=== PATIENT | female | born 1990 ===

== ENCOUNTER 2017-12-28 09:06 | Day surgery (SDC) | payer BC ==
--- NOTE | 2017-12-28 09:46 | C.PDOC ---
History Of Present Illness REFERRED FROM OBGYN FOR INCOMPLETE MISCARRIAGE. PS PERSIST VAG BLEED. NO OTHER ASSOC SX. 5 W5D [id number] EXAM APPEARS COMFORTABLE NAD MARY GUZMÁN JESSAM RNEG Time Seen by Provider: 12/28/17 09:41 Chief Complaint (Nursing): Female Genitourinary History Per: Patient History/Exam Limitations: no limitations Onset/Duration Of Symptoms: Days Current Symptoms Are (Timing): Still Present Severity: Moderate Past Medical History Reviewed: Historical Data, Nursing Documentation, Vital Signs Vital Signs: Last Vital Signs Temp 98.7 F 12/28/17 09:30 Pulse 112 H 12/28/17 09:30 Resp 20 12/28/17 09:30 BP 115/79 12/28/17 09:30 Pulse Ox 100 12/28/17 10:46 - Medical History PMH: No Chronic Diseases Other Surgeries: Hx of surgeries Family History: States: No Known Family Hx - Social History Hx Alcohol Use: No Hx Substance Use: No - Immunization History Hx Tetanus Toxoid Vaccination: No Hx Influenza Vaccination: No Hx Pneumococcal Vaccination: No Review Of Systems Except As Marked, All Systems Reviewed And Found Negative. Genitourinary: Positive for: Vaginal Bleeding Physical Exam - Physical Exam Appears: Non-toxic, No Acute Distress, Other (comfortable) Skin: Normal Color, Warm Head: Atraumatic, Normacephalic Eye(s): bilateral: Normal Inspection Gastrointestinal/Abdominal: Normal Exam, Soft, No Tenderness, No Distention, No Guarding, No Rebound Neurological/Psych: Oriented x3, Normal Speech, Normal Motor, Normal Sensation ED Course And Treatment - Laboratory Results Result Diagrams: 12/28/17 10:30 ECG: Interpreted By Me, Viewed By Me ECG Rhythm: Sinus Rhythm Rate From EC O2 Sat by Pulse Oximetry: 100 (RA) Pulse Ox Interpretation: Normal Progress - Re-Evaluation Re-evaluation Note: 12/28/17 09:48 D/W DR ERICH THURSTON IN ER, POSSIBLE O.R. FOR D&C - Data Reviewed Data Reviewed: Lab Medical Decision Making Medical Decision Making: Plan: --Labs --UA --IV Fluids Disposition Counseled Patient/Family Regarding: Studies Performed, Diagnosis - Disposition Disposition: HOSPITALIZED Disposition Time: 09:46 Condition: STABLE - POA Present On Arrival: None - Clinical Impression Clinical Impression: Incomplete miscarriage - Scribe Statement The provider has reviewed the documentation as recorded by the Brandonibe Madi Evans Provider Attestation: All medical record entries made by the Brandonibe were at my direction and personally dictated by me. I have reviewed the chart and agree that the record accurately reflects my personal performance of the history, physical exam, medical decision making, and the department course for this patient. I have also personally directed, reviewed, and agree with the discharge instructions and disposition. Decision To Admit - Pt Status Changed To: Hospital Disposition Of: SDS- Endo,OR,Cath,IR - . Bed Request Type: BRASS CLEANER Admitting Physician: Osmin Tang Patient Diagnosis: Incomplete miscarriage
[2017-12-28] MEDS ORDERED: Sodium Chloride 0.9% 1,000 ML IV ONE (09:50)
[2017-12-28 10:38] LABS: BASO # 0.1 K/uL (0.0-0.2); BASO % 0.7 % (0.0-2.0); EOS # 0.1 K/uL (0.0-0.7); EOS % 0.7 % (0.0-4.0); HEMOGLOBIN 12.4 g/dL (11.0-16.0); LYMPH # 1.1 K/uL (1.0-4.3); LYMPH % 14.4 % (20.0-40.0); MEAN CELL VOLUME 87.5 fL (81.0-99.0); MEAN CORPUSCULAR HEMOGLOBIN 29.7 pg (27.0-31.0); MEAN PLATELET VOLUME 9.3 fL (7.2-11.7); MONO # 0.6 K/uL (0.0-0.8); MONO % 7.2 % (0.0-10.0); NEUT # 5.9 K/uL (1.8-7.0); RBC 4.16 Mil/uL (3.80-5.20); RED CELL DISTRIBUTION WIDTH 13.6 % (11.5-14.5); WHITE BLOOD COUNT 7.7 K/uL (4.8-10.8)
[2017-12-28 11:00] LABS: ALB/GLOB RATIO 1.2 (1.0-2.1); ALBUMIN 4.8 g/dL (3.5-5.0); CALCIUM 9.6 mg/dl (8.6-10.4); GFR AFRICAN-AMERICAN > 60; GFR NON-AFRICAN AMERICAN > 60
[2017-12-28 11:04] LABS: ALT/SGPT 35 U/L (9-52); AST/SGOT 28 U/L (14-36); BLOOD UREA NITROGEN 11 mg/dL (7-17)
[2017-12-28] MEDS ORDERED: HYDROmorphone 0.5 mg/0.5 ml ISec IVP PRN ×2 (11:54→19:10)
[2017-12-28] MEDS ORDERED: cefOXitin 2 GM in Sodium Chloride 0.9% 100 ML IVPB ONE (11:54)
--- NOTE | 2017-12-28 12:15 | CP.PCM.HP ---
History of Present Illness - History of Present Illness History of Present Illness: OBGYN H&P for Dr. Tang CC: Abdominal pain and vaginal bleeding HPI: 27 yo F currently 5w5d , LMP 11/02/2017 presents complaining of abdominal pain and persistent heavy vaginal bleeding for the past three days. Patient went to the ER at [facility] [place] on Thursday, when the vaginal bleeding started, then again on Thursday with persistent bleeding and worsening pain. At both visits, she had transvaginal ultrasounds which showed early IUP, and labs which showed declining bHCG. Patient continued to bleed heavily, soaking through two pads every hour, with 8/10 crampy lower abdominal pain. She also admits to nausea and one episode of nonbloody, nonbilious vomiting yesterday. She denies chest pain, palpitations, shortness of breath, headache, dizziness, fever, chills, diarrhea, constipation. Remainder of 12 point ROS was obtained and negative except as above. PMH: Patent ductus arteriousus s/p embolization coil placement, anticardiolipid antibody, Sjogrens type A, T1-T8 spinal syringomyelia PSH: PDA embolization coil, section x2, hysteroscopy and myomectomy ( 2017), 4 left eye surgeries FHx: Father (56) with CKD, DM, HTN, CVA; Mother (49) with HLD, cervical CA Soc: Denies tobacco, alcohol, or illicits; lives with boyfriend and two daughters All: [employer] Hx Triad - 11, irregular, 8 Denies history of STIs. Admits to history of cysts and fibroid Mother with history of cervical CA OB Hx - 1. 2009, Spontaneous at 8 weeks 2. 2010, female, primary for history of PDA, at 39 weeks, uncomplicated 3. 2013, female, primary for history of PDA at early labor, at 37 weeks , uncomplicated 4. Current Present on Admission - Present on Admission Any Indicators Present on Admission: No Past Patient History - Past Social History Smoking Status: Never Smoked - CARDIAC Hx Cardiac Disorders: Yes Other/Comment: PDA. Anticardiolip syndrome. Cardiac coil - PSYCHIATRIC Hx Substance Use: No - SURGICAL HISTORY Hx Surgeries: Yes Hx Eye Surgery: Yes Other/Comment: Fibroid removal. Cardiac surgery Meds Allergies/Adverse Reactions: Allergies Allergy/AdvReac Type Severity Reaction Status Date / Time No Known Allergies Allergy Verified 12/28/17 09:36 Physical Exam - Constitutional Appears: Non-toxic, No Acute Distress - Head Exam Head Exam: ATRAUMATIC, NORMOCEPHALIC - Eye Exam Eye Exam: EOMI, Normal appearance, PERRL. absent: Scleral icterus - ENT Exam ENT Exam: Mucous Membranes Moist - Neck Exam Neck exam: Positive for: Normal Inspection - Respiratory Exam Respiratory Exam: Clear to Auscultation Bilateral, NORMAL BREATHING PATTERN - Cardiovascular Exam Cardiovascular Exam: RRR, +S1, +S2. absent: Tachycardia - GI/Abdominal Exam GI & Abdominal Exam: Normal Bowel Sounds, Soft, Tenderness (suprapubic). absent : Distended, Firm, Guarding, Rigid - Exam Additional comments: Vaginal bleeding noted. Cervix dilated with passage of clots. Uterus 4 weeks size. - Extremities Exam Extremities exam: Positive for: normal inspection. Negative for: calf tenderness, pedal edema - Neurological Exam Neurological exam: Alert, Oriented x3 - Psychiatric Exam Psychiatric exam: Normal Affect, Normal Mood - Skin Skin Exam: Dry, Intact, Normal Color Results - Vital Signs Recent Vital Signs: Last Vital Signs Temp 98.7 F 12/28/17 09:30 Pulse 112 H 12/28/17 09:30 Resp 20 12/28/17 09:30 BP 115/79 12/28/17 09:30 Pulse Ox 100 12/28/17 10:47 - Labs Result Diagrams: 12/28/17 10:30 12/28/17 10:30 Labs: Laboratory Results - last 24 hr 12/28/17 12/28/17 10:30 10:30 WBC 7.7 RBC 4.16 Hgb 12.4 Hct 36.4 MCV 87.5 MCH 29.7 MCHC 34.0 RDW 13.6 Plt Count 184 MPV 9.3 Neut % (Auto) 77.0 H Lymph % (Auto) 14.[address] [place] % (Auto) 7.2 Eos % (Auto) 0.7 Baso % (Auto) 0.7 Neut # (Auto) 5.9 Lymph # (Auto) 1.1 [facility] # (Auto) 0.6 Eos # (Auto) 0.1 Baso # (Auto) 0.1 Sodium 140 Potassium 4.6 Chloride 99 Carbon Dioxide 28 Anion Gap 17 BUN 11 Creatinine 0.6 L Est GFR ( Amer) > 60 Est GFR (Non-Af Amer) > 60 Random Glucose 96 Calcium 9.6 Total Bilirubin 0.8 AST 28 ALT 35 Alkaline Phosphatase 39 Total Protein 8.7 H Albumin 4.8 Globulin 3.9 Albumin/Globulin Ratio 1.2 Assessment & Plan - Assessment and Plan (Free Text) Assessment: 27 yo at 8w1d (by LMP 11/02/2017) presents with persistent vaginal bleeding and abdominal pain, likely incomplete . Plan - Plan for suction dilatation and curettage - Type and screen; CBC, CMP, UA - Preop abx (Mefoxin 2gm once) - Pain control - IVF - NPO - Plan discussed with Dr. Kitty Martin DO PGY1
[2017-12-28] MEDS ORDERED: Midazolam 2 MG/2 ML VIAL ONE (18:44)
[2017-12-28] MEDS ORDERED: Propofol 10 mg/ml Inj (20 ML) ONE (18:45)
[2017-12-28] MEDS ORDERED: Albuterol HFA 90 mcg/actuation (8 g) ONE (18:45)
--- NOTE | 2017-12-28 19:04 | PCM.SURG1 ---
Surgeon's Initial Post Op Note - Surgeon's Notes Surgeon: dr krishnamurthy Architectural Designer: none Type of Anesthesia: IV Sedation Anesthesia Administered By: dr king Pre-Operative Diagnosis: 27yr at 7week incomplete Operative Findings: see the op reort Post-Operative Diagnosis: same Operation Performed: suction d&c Specimen/Specimens Removed: poc Estimated Blood Loss: EBL {In ML}: 20 Blood Products Given: N/A Drains Used: No Drains Post-Op Condition: Good Date of Surgery/Procedure: 12/28/17 Time of Surgery/Procedure: 20:00
[2017-12-28 22:01] VITALS: O2SAT 98
[2017-12-28 22:07] VITALS: BP 102/66; PULSE 89; RESP 15; TEMP 98.6
--- NOTE | 2017-12-30 21:45 | OP ---
PROCEDURE DATE: PREOPERATIVE DIAGNOSES: This is a 27-year-old 4, para 2, with incomplete . POSTOPERATIVE DIAGNOSES: This is a 27-year-old 4, para 2, with incomplete . PROCEDURE PERFORMED: Repeat C- section. SURGEON: Osmin Griffiths MD ANESTHESIOLOGIST: . COMPLICATIONS: None. PROCEDURE PERFORMED: Suction dilatation and curettage. ANESTHESIA: IV sedation. DESCRIPTION OF PROCEDURE: After informed consent was obtained, the patient was brought to the operating room placed on the table where spinal anesthesia was given. Once the anesthesia was found to be adequate, she was prepped and draped in the normal sterile fashion. Examination of the uterus revealed it to be 7-week size. Cervix was already 2 cm dilated. Anterior lip of the cervix was grasped with a tenaculum, gentle dilatation of the cervix was done. A 6 Liberian and the 7-Liberian suction catheter was used for the suction. The products were sent to the pathology. After sharp curettage was done and sent to Pathology. Inspection was done again. There were no more products coming, and then the tenaculum was taken out. The patient tolerated the procedure. Lap, sponge, and instrument counts were correct x2. The patient will follow with Dr. Tang in two weeks. Doxycycline and Motrin to go home with. Osmin Tang MD
--- NOTE | 2017-12-31 22:53 | CARD ---
APPROVED REPORT EKG Measurement Heart [id number] <Conclusion> Normal sinus rhythm Normal ECG
== END 2017-12-28 21:35 | disposition home or self-care (01) ==
LOC: C.ER 09:06 → C.SDS 10:06
PROVIDERS: ATTEND Obstetrics & Gynecology
DX: O03.4 Incomplete spontaneous abortion without complication (principal)
CPT/HCPCS: 59820; 80053; 85025; 86850; 86900; 88305; 99285; J0694; J1100; J2250; J2405; J2704; J3010; J7040